=== PATIENT | male | born 1965 | race American Indian/Alaskan Native ===

== ENCOUNTER 2017-08-15 23:44 | Emergency (ER) | payer MEDICAID ==
[~2017-08-15] VITALS: Ht 172.7 cm; Wt 85.0 kg
[2017-08-16 00:07] VITALS: BP 143/83
== END 2017-08-16 00:09 | disposition home or self-care (01) ==
LOC: ER 23:44
DX: S00.211A Abrasion of right eyelid and periocular area, initial encounter (principal); E11.42 Type 2 diabetes mellitus with diabetic polyneuropathy; F17.200 Nicotine dependence, unspecified, uncomplicated; Z88.5 Allergy status to narcotic agent; W22.8XXA Striking against or struck by other objects, initial encounter; Y93.89 Activity, other specified; Y92.89 Other specified places as the place of occurrence of the external cause; Y99.8 Other external cause status
CPT/HCPCS: 99283

== ENCOUNTER 2019-09-26 01:36 | Emergency (ER) | payer MEDICAID, OTHER ==
[~2019-09-26] VITALS: Ht 172.7 cm; Wt 88.6 kg
[2019-09-26] MEDS ORDERED: ketorolac trometh inj. 60 MG/2 ML VIAL IM ONE (02:30)
--- NOTE | 2019-09-26 02:39 | NUR ---
PT BACK FROM X RAY
[2019-09-26] MEDS ORDERED: HYDR-3965 PO (02:46)
[2019-09-26] MEDS ORDERED: DICL50TA8 PO (02:46)
[2019-09-26 03:00] VITALS: BP 141/78
== END 2019-09-26 03:02 | disposition home or self-care (01) ==
LOC: ER 01:36
DX: S22.42XA Multiple fractures of ribs, left side, initial encounter for closed fracture (principal); E11.42 Type 2 diabetes mellitus with diabetic polyneuropathy; F12.90 Cannabis use, unspecified, uncomplicated; Z98.890 Other specified postprocedural states; Z72.89 Other problems related to lifestyle; Z88.5 Allergy status to narcotic agent; Z79.899 Other long term (current) drug therapy; V89.9XXA Person injured in unspecified vehicle accident, initial encounter; Y93.I9 Activity, other involving external motion; Y92.89 Other specified places as the place of occurrence of the external cause; Y99.8 Other external cause status
CPT/HCPCS: 71100; 96372; 99283; J1885